=== PATIENT | female | born 1960 | race Caucasian/White ===

== ENCOUNTER → 2016-10-12 | Outpatient (CLI) | payer OTHER | LOC: FIMAGING 12:33 | PROVIDERS: ATTEND Family Medicine | DX: Z12.31 Encounter for screening mammogram for malignant neoplasm of breast (principal) | CPT/HCPCS: G0202 ==

== ENCOUNTER → 2018-05-26 | Outpatient (CLI) | payer OTHER | LOC: FIMAGING 12:56 | PROVIDERS: ATTEND Family Medicine | DX: Z12.31 Encounter for screening mammogram for malignant neoplasm of breast (principal); Z80.3 Family history of malignant neoplasm of breast ==

== ENCOUNTER 2018-07-16 11:52 | Emergency (ER) | payer OTHER ==
[2018-07-16 12:40] LABS: PLATELET COUNT 506 10^3/uL (150-400)
[2018-07-16] MEDS ORDERED: LORazepam 2 MG/ML INJ ONE (13:15)
[2018-07-16] MEDS ORDERED: LORazepam 2 MG/ML INJ IVP ONE (13:15)
[2018-07-16] MEDS ORDERED: ASPIRIN 81 MG CHEWABLE TAB PO ONE (13:15)
[2018-07-16] MEDS ORDERED: ASPIRIN 81 MG CHEWABLE TAB ONE (13:16)
--- NOTE | 2018-07-16 13:19 | EDPHY ---
H & P Time Seen by Provider: 07/16/18 13:16 HPI/ROS: CHIEF COMPLAINT: Upper back tightness, shortness of breath HISTORY OF PRESENT ILLNESS: Patient is a 57-year-old female with a history of anxiety. Last night she was having difficulty street sleeping. She felt anxious and noticed back tightness. She took a Xanax and subsequently fell sleep for the next hour and half. When she woke up she continued to have some back tightness. She was concerned that this could be findings of heart issues. She woke at 5:00 a.m. to start work on her computer and she still felt a tightness. She states this is similar to her previous anxiety attacks but is been more persistent than normal. No leg pain or swelling. No recent travel. No fevers or chills. No cough. REVIEW OF SYSTEMS: 10 systems were reveiwed and are negative with the exception of the elements mentioned in the history of present illness. Past Medical/Surgical History: Includes anxiety, hypothyroidism Social history: Patient does not smoke. She denies drug use. Smoking Status: Never smoked Physical Exam: Vitals noted GENERAL: Anxious appearing, in no acute distress, alert. HEENT: Eyes normal to inspection, normal pharynx, no signs of dehydration. NECK: Normal, supple. RESPIRATORY: Clear to auscultation bilaterally, no rales, rhonchi or wheezing. CVS: Regular rate and rhythm, no rubs, murmurs, or gallops. ABDOMEN: Soft, nontender, nondistended, no organomegaly. BACK: Normal to inspection, no CVA tenderness. SKIN: Normal color, no rash, warm, dry. No pallor. EXTREMITIES: No pedal edema, no calf tenderness, no Homans sign or cords, no joint swelling. NEURO/PSYCH: Alert and oriented, anxious appearing, normal motor sensory exam. No obvious cranial nerve deficit. Constitutional: Initial Vital Signs Temperature (C) 36.8 C 07/16/18 12:03 Heart Rate 62 07/16/18 12:03 Respiratory Rate 16 07/16/18 12:03 Blood Pressure 147/88 H 07/16/18 12:03 O2 Sat (%) 98 07/16/18 12:03 O2 Delivery Mode Room Air Allergies/Adverse Reactions: No Known Allergies Allergy (Unverified 07/16/18 12:06) Home Medications: Medication Instructions Recorded Synthroid 07/16/18 Xanax 07/16/18 Medical Decision Making - Diagnostics Imaging Results: Imaging Impressions Chest X-Ray 07/16/18 12:20 Impression: Clear lungs. No acute process. ED Course/Re-evaluation: In the emergency department discussed possible etiologies with the patient. I answered all of her questions. An IV was placed. Laboratory studies, EKG and chest x-ray were ordered. The patient seemed anxious and she was given Ativan 1 mg IV. She was also given aspirin orally. EKG shows normal sinus rhythm, normal rate, normal axis, normal intervals. There are no ST or T-wave abnormalities. EKG is normal as interpreted by me. White count is minimally elevated at 11. Chemistry panel is unremarkable. Troponin is negative. D-dimer negative. I rechecked the patient. She had no complaints. All of her symptoms have resolved. She felt much better after receiving the Ativan. I gave patient warnings prior to leaving. She understands the need for close follow-up with Cardiology. Cardiology consult was sent. Differential Diagnosis: My differential includes but is not limited to ACS, acute AR, dissection, aneurysm, pulmonary embolus, GERD, peptic ulcer disease, hiatal hernia - Data Points Laboratory Results: Laboratory Results 07/16/18 12:23 07/16/18 12:23 07/16/18 07/16/18 07/16/18 12:26 12:23 12:23 WBC RBC Hgb Hct MCV MCH MCHC RDW Plt Count MPV Neut % (Auto) Lymph % (Auto) Hamilton % (Auto) Eos % (Auto) Baso % (Auto) Nucleat RBC Rel Count Absolute Neuts (auto) Absolute Lymphs (auto) Absolute Monos (auto) Absolute Eos (auto) Absolute Basos (auto) Absolute Nucleated RBC Immature Gran % Immature Gran # D-Dimer < 0.27 ug/mLFEU ug/mLFEU (0.00-0.50) Sodium 137 mEq/L mEq/L (135-145) Potassium 4.4 mEq/L mEq/L (3.5-5.2) Chloride 103 mEq/L mEq/L (97-110) Carbon Dioxide 25 mEq/l mEq/l (22-31) Anion Gap 9 mEq/L mEq/L (6-14) BUN 11 mg/dL mg/dL (7-23) Creatinine 0.7 mg/dL mg/dL (0.6-1.0) Estimated GFR > 60 Glucose 92 mg/dL mg/dL (70-100) Calcium 10.3 mg/dL mg/dL (8.5-10.4) POC Troponin I 0.00 ng/mL ng/mL (0.00-0.08) 07/16/18 12:23 WBC 11.98 10^3/uL H 10^3/uL (3.80-9.50) RBC 4.47 10^6/uL 10^6/uL (4.18-5.33) Hgb 14.0 g/dL g/dL (12.6-16.3) Hct 41.2 % % (38.0-47.0) MCV 92.2 fL fL (81.5-99.8) MCH 31.3 pg pg (27.9-34.1) MCHC 34.0 g/dL g/dL (32.4-36.7) RDW 14.0 % % (11.5-15.2) Plt Count 506 10^3/uL H 10^3/uL (150-400) MPV 9.2 fL fL (8.7-11.7) Neut % (Auto) 68.8 % % (39.3-74.2) Lymph % (Auto) 20.4 % % (15.0-45.0) Hamilton % (Auto) 7.0 % % (4.5-13.0) Eos % (Auto) 2.8 % % (0.6-7.6) Baso % (Auto) 0.4 % % (0.3-1.7) Nucleat RBC Rel Count 0.0 % % (0.0-0.2) Absolute Neuts (auto) 8.25 10^3/uL H 10^3/uL (1.70-6.50) Absolute Lymphs (auto) 2.44 10^3/uL 10^3/uL (1.00-3.00) Absolute Monos (auto) 0.84 10^3/uL H 10^3/uL (0.30-0.80) Absolute Eos (auto) 0.33 10^3/uL 10^3/uL (0.03-0.40) Absolute Basos (auto) 0.05 10^3/uL 10^3/uL (0.02-0.10) Absolute Nucleated RBC 0.00 10^3/uL 10^3/uL (0-0.01) Immature Gran % 0.6 % % (0.0-1.1) Immature Gran # 0.07 10^3/uL 10^3/uL (0.00-0.10) D-Dimer Sodium Potassium Chloride Carbon Dioxide Anion Gap BUN Creatinine Estimated GFR Glucose Calcium POC Troponin I Medications Given: Discontinued Medications Aspirin (Aspirin) 324 mg PO EDNOW ONE Stop: 07/16/18 13:16 Last Admin: 07/16/18 13:21 Dose: 324 mg Lorazepam (Ativan Injection) 1 mg IVP EDNOW ONE Stop: 07/16/18 13:16 Last Admin: 07/16/18 13:20 Dose: 1 mg Point of Care Test Results: Chemistry 07/16/18 12:26 POC Troponin I 0.00 ng/mL ng/mL (0.00-0.08) Departure - Departure Disposition: Home, Routine, Self-Care Clinical Impression: Chest pain Qualifiers: Chest pain type: unspecified Qualified Code(s): R07.9 - Chest pain, unspecified Condition: Good Instructions: Chest Pain (ED) Additional Instructions: Return with increasing chest pain, shortness of breath or any other concerns. A cardiology consult has been sent to [facility]. If you do not hear from them in the next 1-2 days call the number provided to arrange close follow-up appointment. Referrals: [facility] [Provider Group] - 1-2 days without fail Inna Santillan MD [Primary Care Provider] - 5-7 days, call for appt.
[2018-07-16 14:05] VITALS: BP 154/100
--- NOTE | 2018-07-16 14:47 | CPEKG ---
Test Reason : OPEN Blood Pressure : / mmHG Vent. Rate : 064 BPM Atrial Rate : 064 BPM P-R Int : 116 ms QRS Dur : 075 ms QT Int : 429 ms P-R-T Axes : 057 070 037 degrees QTc Int : 443 ms Sinus rhythm Consider left ventricular hypertrophy Confirmed by Monica Thao ([id number] on 07/16/2018 2:46:28 PM Referred By: PHYSICIAN ED Confirmed By:Monica Thao
== END 2018-07-16 14:30 | disposition home or self-care (01) ==
DX: R07.9 Chest pain, unspecified (principal); R06.02 Shortness of breath; M54.6 Pain in thoracic spine; E03.9 Hypothyroidism, unspecified; F41.9 Anxiety disorder, unspecified
CPT/HCPCS: 84484-ER; 96374; J2060